=== PATIENT | female | born 1965 | race Caucasian/White ===

== ENCOUNTER 2019-02-06 17:47 | Emergency (ER) | payer SELFPAY ==
[~2019-02-06] VITALS: Ht 162.6 cm; Wt 75.0 kg
[~2019-02-06 17:47] MED LIST: CELE100 PO; NOCURR
[2019-02-06 20:35] VITALS: BP 122/74
== END 2019-02-06 20:36 | disposition home or self-care (01) ==
LOC: EMS 17:48
DX: R76.11 Nonspecific reaction to tuberculin skin test without active tuberculosis (principal); F11.90 Opioid use, unspecified, uncomplicated

== ENCOUNTER 2019-02-14 18:44 | Emergency (ER) | payer MEDICAID ==
[~2019-02-14] VITALS: Ht 162.6 cm; Wt 77.3 kg
[2019-02-14] MEDS ORDERED: LISI-661 PO (18:59)
[2019-02-14 19:28] LABS: BASOPHILS % (AUTO) 0.9 % (0.0-2.0); EOSINOPHILS % (AUTO) 2.9 % (1.0-6.0); HEMATOCRIT 35.2 % (36-46); HEMOGLOBIN 11.7 g/dL (12.0-16.0); LYMPHOCYTES # (AUTO) 2.7 K/uL (1.0-4.8); LYMPHOCYTES % (AUTO) 39.9 % (22.0-44.0); MEAN CORPUSCULAR HEMOGLOBIN 27.6 pg (26.0-34.0); MEAN CORPUSCULAR HGB CONC 33.4 G/dL (31.0-37.0); MEAN CORPUSCULAR VOLUME 83 fL (80-100); MONOCYTES # (AUTO) 0.4 K/uL (0.1-1.0); NEUTROPHILS # (AUTO) 3.4 K/uL (1.8-7.7); NEUTROPHILS % (AUTO) 50.3 % (40.0-70.0); PLATELET COUNT (AUTO) 288 K/uL (150-450); RED BLOOD CELL COUNT(AUTO) 4.26 MIL/uL (4.00-5.20); RED CELL DISTRIBUTION WIDTH 14.3 % (11.5-14.5)
[2019-02-14 19:45] LABS: ANION GAP 7 mmol/L (8-16); CALCIUM, TOTAL 8.3 mg/dL (8.8-10.5); CARBON DIOXIDE 26 mmol/L (22-29); CHLORIDE 104 mmol/L (98-107); CREATININE 0.84 mg/dL (0.60-1.30); GLOMERULAR FILTR. RATE CALC > 60 mL/min (>60); GLUCOSE,RANDOM 178 mg/dL (70-110); POTASSIUM 4.2 mmol/L (3.5-5.1); SODIUM SERUM 137 mmol/L (136-145); UREA NITROGEN, BLOOD 17 mg/dL (7-18)
[2019-02-14 19:56] LABS: ALANINE AMINOTRANSFERASE 67 U/L (12-78); ALBUMIN 3.4 g/dL (3.4-5.0); ALKALINE PHOSPHATASE 131 U/L (46-116); ASPARTATE AMINOTRANSFERASE 39 U/L (15-37); BILIRUBIN,TOTAL 0.2 mg/dL (0.1-1.0); HCG,QUANTITATIVE 1 mIU/mL (0-6); LIPASE 178 U/L (73-393); TOTAL PROTEIN, SERUM 7.3 g/dL (6.4-8.2)
[2019-02-14 19:59] LABS: APPEARANCE,URINE CLEAR (CLEAR); BILIRUBIN,URINE NEGATIVE (NEGATIVE); GLUCOSE, URINE (UA) NEGATIVE (NEGATIVE); KETONES,URINE NEGATIVE (NEGATIVE); LEUKOCYTE ESTERASE ,URINE LARGE (NEGATIVE); NITRATE,URINE NEGATIVE (NEGATIVE); OCCULT BLOOD,URINE NEGATIVE (NEGATIVE); PROTEIN,URINE NEGATIVE (NEGATIVE)
[2019-02-14 20:20] LABS: BACTERIA,URINE Moderate /HPF (None Seen); RBC,URINE None Seen /HPF (0-2)
[2019-02-14 20:21] LABS: SQUAMOUS EPITHELIAL CELL,UR Many /LPF (None Seen)
[2019-02-14] MEDS ORDERED: LIDOCAINE/PF 1% 2 ML VIAL IM ONE (21:15)
[2019-02-14] MEDS ORDERED: CefTRIAXone SODIUM 1 GM/VIAL IM ONE (21:15)
[2019-02-14] MEDS ORDERED: AZITHROMYCIN 250 MG TABLET PO ONE (21:15)
[2019-02-14 21:30] VITALS: BP 141/83
== END 2019-02-14 22:18 | disposition home or self-care (01) ==
LOC: EMS 18:45
DX: N76.0 Acute vaginitis (principal); N83.201 Unspecified ovarian cyst, right side; N39.0 Urinary tract infection, site not specified; F19.10 Other psychoactive substance abuse, uncomplicated; I10 Essential (primary) hypertension; F11.90 Opioid use, unspecified, uncomplicated; Z79.899 Other long term (current) drug therapy
CPT/HCPCS: 36415; 76856; 80053; 81001; 83690; 84702; 85025; 87086; 87210; 96372; 99284; J0696; J3490

== ENCOUNTER 2019-02-24 19:50 | Emergency (ER) | payer MEDICAID ==
[~2019-02-24] VITALS: Ht 162.6 cm; Wt 72.7 kg
[~2019-02-24 19:50] MED LIST changes: -CELE100 PO; +LISI-661 PO; -NOCURR
[2019-02-24 19:57] VITALS: BP 150/93
== END 2019-02-24 21:10 | disposition left against medical advice (07) ==
LOC: EMS 19:57
DX: I10 Essential (primary) hypertension (principal); Z53.21 Procedure and treatment not carried out due to patient leaving prior to being seen by health care provider